=== PATIENT | female | born 1965 | race Caucasian/White ===

== ENCOUNTER 2020-11-06 17:46 | Outpatient (REF) | payer OTHER, SELFPAY ==
--- NOTE | 2020-11-06 09:00 | PAPFT_PTH ---
PATIENT: Krystyna Frazier LOC: [facility] U#:[id number] AGE/SX: 55/F ROOM: RE11/06/[address]: Holley Mayes : 1965 BED: DIS: 11/06/2020 SPEC #: [id number] RECD: 11/07/20 18:34 STATUS: YASMIN REQ #: [id number] JUDIE: 11/06/20 09:[address]: Holley Mayes DEPT: [facility] Cytology RECD BY: Tami East Tissues: 1 - CX/ENDOCX FOR PAP SMEARS Procedures: PAP THIN PREP/UVM Screening HPV DNA PROBE Comments: [id number]
== END 2020-11-06 17:47 | disposition home or self-care (01) ==
LOC: NCHCN 17:46
PROVIDERS: PCP Family Medicine; Visit Provider Family Medicine
DX: Z12.4 Encounter for screening for malignant neoplasm of cervix (principal); Z11.51 Encounter for screening for human papillomavirus (HPV); Z00.00 Encounter for general adult medical examination without abnormal findings; Z01.419 Encounter for gynecological examination (general) (routine) without abnormal findings
CPT/HCPCS: 88142; 87624

== ENCOUNTER → 2021-08-07 01:27 | Outpatient (CLI) | payer OTHER, SELFPAY ==
--- NOTE | 2021-08-07 08:30 | DI.MRI_ITS ---
Exam(s) MR BRAIN WO/W EXAM: MR BRAIN WO/W CLINICAL HISTORY: POST TRAUMATIC HEADACHE, G44.309 TECHNIQUE: Multiplanar multisequence MRI of the brain was performed. CONTRAST MATERIAL: IV Contrast: 13 ML of Dotarem contrast administered. COMPARISON: No exams were available for comparison FINDINGS: VENTRICLES AND EXTRA AXIAL SPACES: Normal in size and morphology for the patient's age. HEMORRHAGE: None. CEREBRAL PARENCHYMA: No focus of restricted diffusion to suggest acute infarct. No space-occupying le jacqueline identified. There are areas of hyperintense signal seen on the FLAIR and T2 weighted images in t he left parietal lobe adjacent to the lateral ventricle and in the left occipital lobe. These areas show no enhancement. MIDLINE SHIFT: None. BRAINSTEM/CEREBELLUM: Normal. CALVARIUM: Normal. ENHANCEMENT: No suspicious enhancement identified. VISUALIZED PARANASAL SINUSES/MASTOIDS: Clear. EKLUTNA OF MORALES: Normal flow void. PITUITARY GLAND: Unremarkable. OTHER FINDINGS: IMPRESSION: 1. No intracranial hemorrhage. No acute infarct. 2. Foci of hyperintense signal seen on the FLAIR and T2 weighted images in the left parietal lobe and the left occipital lobe as described. Differential considerations include white matter injury/traum a, migraine related deep white matter disease, demyelinating disease, inflammatory/infectious process , or vasculitis. DATA REPOSITORY:
[2021-08-07] MEDS: Normal Saline Flush 10 ML SYR IVP (08:39)
[2021-08-07] MEDS: Gadoterate meglumine 20 ML VIAL 13 ML IVP (08:40)
== END ==
PROVIDERS: PCP Family Medicine; Visit Provider Family Medicine
DX: G44.309 Post-traumatic headache, unspecified, not intractable (principal); R94.02 Abnormal brain scan
CPT/HCPCS: 70553

== ENCOUNTER 2023-03-18 18:31 | Outpatient (REF) | payer OTHER, SELFPAY ==
[2023-03-18 14:19] LABS: Abs Immature Grans 0.01 10^3/uL (0.0-0.06); Absolute Basophil Count 0.06 10^3/uL (0.0-0.2); Absolute Lymphocyte Count 1.78 10^3/uL (1.2-3.4); Absolute Monocyte Count 0.39 10^3/uL (0.1-0.8); Absolute Neutrophil Count 3.16 10^3/uL (1.2-6.7); Basophils % 1.1; Eosinophils % 3.6; HCT 38.7 % (36.0-46.0); HGB 13.1 g/dL (11.2-15.7); Immature Grans % 0.2; Lymphocytes % 31.8; MCH 31.6 pg (27.0-33.0); MCHC 33.9 % (32.0-36.0); MCV 94 fL (80-95); Neutrophils % 56.3; Platelet Count 237 10^3/uL (130-400); RBC 4.14 10^6/uL (3.93-5.22); RDW 12.8 % (11.7-14.6); RDW-SD 44.1 fL
[2023-03-18 14:34] LABS: ALT 17 U/L (14-59); AST 14 U/L (15-37); Albumin 3.9 g/dL (3.4-5.0); Alkaline Phosphatase 63 U/L (46-116); BUN 19 mg/dL (7-18); Bilirubin, Total 0.4 mg/dL (0.2-1.0); CREATININE 0.7 mg/dL (0.55-1.02); Calcium 9.2 mg/dL (8.5-10.1); Calculated LDL 147 mg/dL (<100); Chloride 103 mmol/L (98-107); Cholesterol 222 mg/dL (<200); Estimated GFR 102.07 (mL/min/1.73m2); Glucose 94 mg/dL (74-106); HDL Cholesterol 60 mg/dL (40-60); Sodium 141 mmol/L (136-145); Total Protein 7.3 g/dL (6.4-8.2); Triglyceride 75 mg/dL (<150)
[2023-03-18 14:54] LABS: Vitamin D 25 Total 26.7 ng/mL (30-100)
== END 2023-03-18 18:32 | disposition home or self-care (01) ==
LOC: NCHCN 18:31
PROVIDERS: PCP Family Medicine; Visit Provider Family Medicine
DX: R56.9 Unspecified convulsions (principal); E55.9 Vitamin D deficiency, unspecified; R79.89 Other specified abnormal findings of blood chemistry; I10 Essential (primary) hypertension
CPT/HCPCS: 80053; 80061; 82306; 85025

== ENCOUNTER 2024-04-26 16:34 | Outpatient (REF) | payer OTHER, SELFPAY ==
--- OUTSIDE RECORDS SUMMARY | 2024-04-26 16:37 | XMS_ITS | Data Portability ---
Author Organization [place] - [facility] [place] [address] Assessment No assessment recorded. Plan of Treatment Reminders Order Date Submit Date Provider Last Modified By Organization Details Last Modified Time Details Appointments Nurse Visit 30 2023 03:30P M Not available Not available Not available Lab lipids, total, serum - 1Y 2023 024 [facility] (Registration ), [address] [place] [address] [place], [address], 04/26/2024 15:35:22 Referral physical therapist referral 2023 024 [email or web address] [facility], [address], [address], [place], [address], 10/19/2023 08:56:07 orthopedi c surgeon referral 2023 024 [facility], [address], [place], [address], 02/09/2024 15:41:59 orthopedi c surgeon referral 2023 024 [email or web address] [facility], [address], [place], [address], 03/30/2024 09:28:59 Procedures None recorded. Surgeries None recorded. Imaging US, duplex, carotid artery 2023 024 [facility], [address], [place], [address], 04/09/2024 16:26:06 Medication Orders methocarb patrica 500 mg tablet 2023 024 [email or web address] #[id number], [address], [place], [address], 01/09/2024 16:16:22 Patient TargetsNo targets recorded. Patient InstructionsNo instructions recorded. Reason for Referral Physical Therapist Referral for Left side sciatica Referring Physician: Holley Mayes [facility], Encounter Date: 09/26/2023 Physical Therapist Referral for Left side sciatica Referring Physician: Holley Mayes [facility], Encounter Date: 10/19/2023 Orthopedic Surgeon Referral for Pain of left knee joint Referring Physician: Holley Mayes [facility], Encounter Date: 01/09/2024 Orthopedic Surgeon Referral for Pain of left hip joint Referring Physician: Holley Mayes [facility], Encounter Date: 03/30/2024 Results Created Date Observation Date Name Description Value Unit Range Abnormal Flag Note LastModifiedBy Organization Detail LastModifiedTime 11/25/1911/25/2023 MAMMO , scree lorie, bilat eral No observ ation record ed. [email or web address] [facility] [address], [place], [address], 11/28/2023 13:16:09 04/09/20 24 04/09/2024 US, duple x, carot id arter y No observ ation record ed. [email or web address] [facility] [address], [place], [address], 04/13/2024 08:05:57 Result Notes None recorded. Problems Name Problem SNOMED Code Status Onset Date Resolution Date Notes Provider Name and Address Organization Details Recorded Time Seizure 33686254 Active 201903/18/20 23 - Comments only - Holley Mayes MD - Stable, no recent seizures . Problem Code: R56.9; Problem Code Type: ICD-10; Not Available [facility] 3 05:14:41 Edema 908019521 Active 201911/08/19 21 - Comments only - Holley Mayes MD - Patient currentl y takes 12.5 mg of hydrochl orothiaz marcus daily this controls her edema she has no none noted today. Her blood pressure is also very well controll ed with this. She does not have a history for hyperten jacqueline. Problem Code: R60.9; Problem Code Type: ICD-10; Not Available [facility] 3 05:14:41 Screenin g for malignan t neoplasm of colon Active 2019 Problem Code: Z12.11; Problem Code Type: ICD-10; Not Available [facility] 3 05:14:42 Screenin g mammogra phy Active 201911/08/19 21 - Comments only - Holley Mayes MD - Patient is now 12 months without a menstrua l cycle she is hot flashes. Recommen d that she takes in adequate amounts of calcium of recent 1000 mg a day and 2000 internat ional units of vitamin D to help maintain her bones. She does do weightbe aring exercise . Problem Code: Z12.31; Problem Code Type: ICD-10; Not Available [facility] 3 05:14:42 Menopaus e present 840793164 Active 201910/01/19 20 - Comments only - Holley Mayes MD - That it is not unusual for women to be in their mid to late her 50s. Problem Code: Z78.0; Problem Code Type: ICD-10; Not Available [facility] 3 05:14:42 Adult health examinat ion Active 202003/18/20 23 - Comments only - Holley Mayes MD - Krystyna Frazier is a healthy active 57 year old female her for a well exam. She is due for a colonsco py and would like that done in [facility] on. We will make that referral . She comes in fasting and would like her routine blood work done as well. I will send her a letter with the results. She sees her dentist as recommen ded and needs an eye doctor. Hers retired. Problem Code: Z00.00; Problem Code Type: ICD-10; Not Available [facility] 3 05:14:42 [facility] hyperten jacqueline 20759298 Active 202103/18/20 23 - Comments only - Holley Mayes MD - [facility] ed no changes made today. Problem Code: I10; Problem Code Type: ICD-10; Not Available [facility] 3 05:14:42 Allergic rhinitis 11748582 Active 2021 Problem Code: J30.9; Problem Code Type: ICD-10; Not Available [facility] 3 05:14:42 Vitamin D deficien cy 68265100 Active 2022 Problem Code: E55.9; Problem Code Type: ICD-10; Not Available [facility] 3 05:14:42 Posttrau matic headache 43211530 Completed 202001/11/2022 Problem Code: G44.309; Problem Code Type: ICD-10; Not Available [facility] 3 05:15:02 Counseli ng Completed 201911/07/2020 Problem Code: Z71.89; Problem Code Type: ICD-10; Not Available [facility] 3 05:15:11 Left side sciatica 22008615183 9104 Active [address], [facility] [address] , [facility] 4 15:30:29 Left side sciatica 50852106998 9104 Active [address], [facility] [address] , [facility] 4 15:37:57 Pain of left knee joint 10445319386 4107 Active [address], [facility] [address] , [facility] 4 16:26:25 Carotid bruit 602213270 Active [address], [facility] [address] , [facility] 4 08:26:37 Pain of left hip joint 26773335296 9100 Active 2023 HOLLEY MAYES MD [address], [place], [address] , [facility] 4 08:27:31 Problem Notes None recorded. Procedures Surgical History Date Name Laterality Status Provider Name and Address Organization Details Recorded Time 4 Most Recent [facility]/29/2024 15:06:10 1 Date of Last Pap Smear [facility] 03/29/2024 15:04:50 Imaging Results Imaging Date Name Status LastModified by Organiz ation Details LastModified Time 11/25/2023 MAMMO, screening, bilateral completed [email or web address] [facility] [address], [place], [address], 11/28/2023 13:16:09 04/09/2024 US, duplex, carotid artery completed [email or web address] [facility] [address], [place], [address], 04/13/2024 08:05:57 Procedure Notes None recorded. Medical Equipment None Reported. Allergies Allergen ID Allergen Name Allergen Category Reaction Reaction Severity Criticality Documentation Date Start Date Code Code System Note Provider Name and Address Organization Details Recorded Time 46540 Medicinal product containin g penicilli n and acting as antibacte rial agent (product) medicatio n rash Not available Not available 09/26/2023 38466 05 SNOMED ADWOA STEINBERG, [facility] 15:22:48 Medications Name Sig Start Date Stop Date Status Note LastModified by Organization Details LastModified Time methocarbam ol 500 mg tablet TAKE 2 TABLETS 3 TIMES A DAY BY ORAL ROUTE NEEDED FOR 10 DAYS. 01/08 completed Not Available Not Available Not Available lamotrigine 150 mg tablet TAKE 1 TABLET BY MOUTH TWICE A DAY active Not Available Not Available No t Available fluconazole 150 mg tablet TAKE 1 TABLET BY MOUTH DAILY FOR 1 DAY, REPEAT IN 3 DAYS NEEDED 03/30 completed Not Available Not Available Not Available hydrochloro thiazide 25 mg tablet TAKE 0.5 TABLET BY MOUTH ONCE A DAY DIRECTED active Not Available Not Available No t Available nitrofurant oin monohydrate /macrocryst als 100 mg capsule TAKE 1 CAPSULE BY MOUTH TWICE A DAY FOR 5 DAYS 03/30 completed Not Available Not Available Not Available Vitals Date Recorded Body height Body mass index (BMI) Body weight Body temperature Respiratory rate Heart rate Oxygen saturation Oxygen saturation in Arterial blood by Pulse oximetry Systolic blood pressure Diastolic blood pressure Provider Name and Address Organization Details Last Updated DateTime 4 167.64 cm 24.2 kg/m2 62412.8 6 g 97 [degF] 20 /min 71 /min 96 % 96 % 130 mm[Hg] 62 mm[Hg] VIJAY HAND MA [facility] 4 15:24:51 Date Recorded Body height Body mass index (BMI) Body weight Body temperature Oxygen saturation Oxygen saturation in Arterial blood by Pulse oximetry Heart rate Respiratory rate Systolic blood pressure Diastolic blood pressure Provider Name and Address Organization Details Last Updated DateTime 4 167.64 cm 24.5 kg/m2 07597.2 5 g 97.4 [degF] 97 % 97 % 76 /min 16 /min 122 mm[Hg] 68 mm[Hg] Preethi Mitchell RN [facility] 4 16:15:34 Date Recorded Body height Body temperature Respiratory rate Body mass index (BMI) Body weight Oxygen saturation Oxygen saturation in Arterial blood by Pulse oximetry Heart rate Systolic blood pressure Diastolic blood pressure Provider Name and Address Organization Details Last Updated DateTime 4 167.64 cm 97.8 [degF] 16 /min 24.7 kg/m2 16887.6 3 g 98 % 98 % 65 /min 136 mm[Hg] 64 mm[Hg] VIJAY HAND MA [facility] 4 07:59:19 Date Recorded Body height Systolic blood pressure Diastolic blood pressure Provider Name and Address Organization Details Last Updated DateTime 04/26/2024 167.64 cm 120 mm[Hg] 70 mm[Hg] ROSETTE DOCKERY CMA [facility] 04/26/2024 15:20:36 Social History Question Answer Notes LastModified by Organizat ion Details LastModified Time Tobacco Smoking Status Never Smoker ADWOA STEINBERG, [facility] 03/30/2024 07:57:16 Do You Have An Advance Directive? No Given At Todays Visit. [email or web address] Information not available 03/30/2024 Would You Say That, In General, Your Health Is Very Good Information not available 03/30/2024 Women Aged 18-50 - Would You Like To Become In The Next Year? (Female Patients Only) No Information not available 03/30/2024 How Often Does Anyone, Including Family, Physically Hurt You? Never Information not available 03/30/2024 How Often Does Anyone, Including Family, Insult Or Talk Down To You? Never Information no t available 03/30/2024 How Often Does Anyone, Including Family, Threaten You With Harm? Never Information not available 03/30/2024 How Often Does Anyone, Including Family, Scream Or Curse At You? Never Information not available 03/30/2024 Within The Past 12 Months, You Worried That Your Food Would Run Out Before You Got Money To Buy More. Never True Information n ot available 03/30/2024 Within The Past 12 Months, The Food You Bought Just Didn't Last And You Didn't Have Money To Get More. Never True Information n ot available 03/30/2024 How Hard Is It For You To Pay For The Very Basics Like Food, Housing, Medical Care, And Heating? Would You Say It Is: Not Hard At All Information not available 03/30/2024 In The Past 12 Months, Has Lack Of Reliable Transportation Kept You From Medical Appointments, Meetings, Work Or From Getting Things Needed For Daily Living? No Information not available 03/30/2024 What Is Your Housing Situation Today? I Have Housing. Information not available 03/30/2024 How Often In The Past Year Have You Used Marijuana (including Smoking, Vaping, Dabbing, Or Edibles)? Never Information not available 03/30/2024 How Often In The Past Year Have You Used Prescription Medications That Were Not Prescribed To You? Never Information n ot available 03/30/2024 How Often In The Past Year Have You Taken Your Own Prescription Medication More Than The Way It Was Prescribed Or For Different Reasons Than Its Intended Purpose? Never Information no t available 03/30/2024 How Often In The Past Year Have You Used Other Drugs (for Example, Heroin, Cocaine, Meth, Salvia, Inhalants)? Never Information not available 03/30/2024 Have You Ever Used IV Drugs? No Information not available 03/30/2024 Date Of Most Recent SBINS 03/30/2024 Information not available 03/30/2024 What Was The Date Of Your Most Recent Tobacco Screening? 03/30/2024 Information not available 03/30/2024 Has Tobacco Cessation Counseling Been Provided? Yes Information not available 03/30/2024 On What Date Was Tobacco Cessation Counseling Provided? 03/30/2024 Information not available 03/30/2024 Do You Or Have You Ever Used Any Other Forms Of Tobacco Or Nicotine? No Information not available 03/30/2024 Sex: Female Functional Status None recorded. Mental Status None recorded. Family History Nothing Reported Notes:*Problem: Mother Scler aderma Father healthy 2 brothers healthy Medical History No medical history recorded. Gynecological History Statement/Question Response Date of Last Pap Smear 11/06/2020 Most Recent Mammogram 11/25/2023 Obstetrics History GPAL:G 0 P 0 0 0 0 Immunizations Vaccine Type Date Status Provider Name and Address Organization Details Recorded Time Tdap 10/01/2019 completed Not Available [facility] 06:09:25 Tdap 03/10/2009 completed Not Available [facility] 06:09:25 Td(adult) unspecified formulation 12/31/1996 completed Not Available [facility] 07/01/2023 06:09:25 Hep B, unspecified formulation 12/31/2000 completed Not Available [facility] 07/01/2023 06:09:25 influenza, unspecified formulation 07/05/2014 completed Not Available [facility] 07/01/2023 06:09:25 Past Encounters Encounter ID Performer Location Encounter Start Date Encounter Closed Date Diagnosis/Indication Diagnosis SNOMED-CT Code Diagnosis ICD10 Code [id number] HOLLEY MAYES MD [address] [address] 09/26/2023 15:08:36 09/26/2023 15:36:02 Left side sciatica 1639016629 79755 M54.32 [id number] HOLLEY MAYES MD [address] [address] 01/09/2024 15:56:30 01/19/2024 11:33:26 Pain of left knee joint 1953910278 81054 M25.891 [id number] HOLLEY MAYES MD [address] [address] 03/30/2024 07:44:50 03/30/2024 09:28:58 Adult health examination 804582315 Z00.00 Essential hypertension 39064192 I10 Carotid bruit 067414245 R09.89 Pain of le ft hip joint 5689398235 55897 M25.335 [id number] ROSETTE DOCKERY CMA [address] [address] 04/26/2024 15:12:02 04/26/2024 15:22:43 Carotid bruit 079613419 R09.89 Health Concerns Section Related Observation LastModified by Organization Detai ls LastModified Time None Recorded Concern Status LastModified by Organization Details LastModified Time None Recorded Advance Directives Directive N: Given at todays visit. Payers Encounter Date Sequence Insurance Name Policy Number Policy Givens Covered Member ID Givens Member ID Guarantor Name 09/26/2023 1 [facility] [id number] Krystyna Resendez Freddie [id number] Krystyna Resendez Freddie 01/09/2024 1 [employer] [id number] Krystyna Resendez Freddie [id number] Krystyna Resendez Freddie 03/30/2024 1 [employer] [id number] Krystyna Resendez Freddie [id number] Krystyna Resendez Freddie 04/26/2024 1 [employer] [id number] Krystyna Resendez Freddie [id number] Krystyna Resendez Freddie Notes Date Note Type Note Provider Name and Address Organization Details Recorded Time 09/26/2023 text/html HPI Notes: Ana adan is a healthy active 58-year-old female who comes in today because 2 weeks ago she was shoveling snow she bent over and got a sudden pain on the left side of her buttock and into her left groin and down her leg. She tried ibuprofen that helped a little but it does not seem to be going away. She states that the it was swollen at first the swelling is not completely gone now. She is not having any difficulty urinating or defecating. MD [address], [place], [address], [facility]. 09/26/2023 15:38:13 01/09/2024 text/html HPI Notes: Ana adan is a 58-year-old female comes in today because she has developed left knee pain. She states that she Was doing physical therapy for her back and that is gotten much better but all of a sudden her left knee is very painful it is hard to straighten out there is an area of the bone right along the lateral aspect of the knee is incredibly tender just to touch. She states going up and down stairs is difficult especially down and walking downhill is also quite difficult it has not swollen and she is icing liberally and using Tylenol and ibuprofen it does not seem to be getting better spent several weeks. She did not recall any injury. MD [address], [place], [address], [facility]. 01/09/2024 16:42:24 03/30/2024 text/html HPI Notes: Ana adan is a healthy active 58-year-old female comes in today for general well exam. She is up-to-date on her mammograms and Pap smears. She is due for colonoscopy and would prefer to do that at [facility]. Blood pressure is well-controlled and she is having no side effects from the medication hydrochlorothiazid e. She reports she is eating a healthy diet she is trying to be more physically active but her left hip is becoming increasingly more painful and interfering with her ability and would like to see someone about it. She has done a significant amount of physical therapy this year and it has not resolved the issue. She reports she is up to date on her dental care. She has not seen an eye doctor for several years she needs to find a new one. She has not really noticed any significant change in her vision. HOLLEY MAYES MD [address], [place], [address], [facility]. 03/30/2024 09:11:29 OBGyn Episode No OBEpisode recorded.
--- OUTSIDE RECORDS SUMMARY | 2024-04-26 16:37 | XMS_ITS | Continuity of Care Document ---
Author Organization [facility] Address [address] [place] [address] Assessment No assessment recorded. Plan of Treatment Reminders Order Date Submit Date Provider Last Modified By Organization Details Last Modified Time Details Appointments Nurse Visit 30 2023 03:30P M Not available Not available Not available Lab None recorded. Referral orthopedi c surgeon referral 2023 024 [email or web address] [facility], [address], [place], [address], 03/30/2024 09:28:59 Procedures None recorded. Surgeries None recorded. Imaging US, duplex, carotid artery 2023 024 [facility], [address], [place], [address], 04/09/2024 16:26:06 Medication Orders None recorded. Patient TargetsNo targets recorded. Patient InstructionsNo instructions recorded. Reason for Referral Physical Therapist Referral for Left side sciatica Referring Physician: [facility], Encounter Date: 09/26/2023 Physical Therapist Referral for Left side sciatica Referring Physician: [facility], Encounter Date: 10/19/2023 Orthopedic Surgeon Referral for Pain of left knee joint Referring Physician: [facility], Encounter Date: 01/09/2024 Orthopedic Surgeon Referral for Pain of left hip joint Referring Physician: [facility], Encounter Date: 03/30/2024 Results Created Date Observation Date Name Description Value Unit Range Abnormal Flag Note LastModifiedBy Organization Detail LastModifiedTime 04/09/20 24 04/09/2024 US, mohamud x, carot id arter y No observ ation record ed. lbisson [facility] [address], [place], [address], 04/13/2024 08:05:57 Result Notes None recorded. Problems Name Problem SNOMED Code Status Onset Date Resolution Date Notes Provider Name and Address Organization Details Recorded Time Seizure 08320759 Active 201903/18/20 23 - Comments only - Karis Mayes MD - Stable, no recent seizures . Problem Code: R56.9; Problem Code Type: ICD-10; Not Available [facility] 3 05:14:41 Edema 246920528 Active 201911/08/19 21 - Comments only - Karis Mayes MD - Patient currentl y takes 12.5 mg of hydrochl orothiaz marcus daily this controls her edema she has no none noted today. Her blood pressure is also very well controll ed with this. She does not have a history for hyperten jacqueline. Problem Code: R60.9; Problem Code Type: ICD-10; Not Available [facility] 3 05:14:41 Screenin g for malignan t neoplasm of colon Active 2019 Problem Code: Z12.11; Problem Code Type: ICD-10; Not Available [facility] 3 05:14:42 Screenin g mammogra phy Active 201911/08/19 21 - Comments only - Karis Mayes MD - Patient is now 12 months without a menstrua l cycle she is hot flashes. Recommen d that she takes in adequate amounts of calcium of recent 1000 mg a day and 2000 internat ional units of vitamin D to help maintain her bones. She does do weightbe aring exercise . Problem Code: Z12.31; Problem Code Type: ICD-10; Not Available [facility] 3 05:14:42 Menopaus e present 899462373 Active 201910/01/19 20 - Comments only - Karis Mayes MD - That it is not unusual for women to be in their mid to late her 50s. Problem Code: Z78.0; Problem Code Type: ICD-10; Not Available [facility] 3 05:14:42 Adult health examinat tucker Active 202003/18/20 23 - Comments only - Karis Mayes MD - Krystyna Frazier is a healthy active 57 year old female her for a well exam. She is due for a colonsco py and would like that done in [facility] on. We will make that referral . She comes in fasting and would like her routine blood work done as well. I will send her a letter with the results. She sees her dentist as recommen ded and needs an eye doctor. Hers retired. Problem Code: Z00.00; Problem Code Type: ICD-10; Not Available [facility] 3 05:14:42 [facility]entia l hyperten jacqueline 17033957 Active 202103/18/20 23 - Comments only - Karis Mayes MD - [facility] ed no changes made today. Problem Code: I10; Problem Code Type: ICD-10; Not Available [facility] 3 05:14:42 Allergic rhinitis 60454242 Active 2021 Problem Code: J30.9; Problem Code Type: ICD-10; Not Available [facility] 3 05:14:42 Vitamin D deficien cy 44260165 Active 2022 Problem Code: E55.9; Problem Code Type: ICD-10; Not Available [facility] 3 05:14:42 Posttrau matic headache 78318278 Completed 202001/11/2022 Problem Code: G44.309; Problem Code Type: ICD-10; Not Available [facility] 3 05:15:02 Counseli ng Completed 201911/07/2020 Problem Code: Z71.89; Problem Code Type: ICD-10; Not Available [facility] 3 05:15:11 Left side sciatica 12692998998 9104 Active 2023 KARIS MAYSE MD [facility] [address], [place], [address] , [facility]. 4 15:30:29 Left side sciatica 75194102105 9104 Active 2023 KARIS MAYES MD [address], [facility] [address] , [facility] 4 15:37:57 Pain of left knee joint 61647000927 4107 Active [address], [facility] [address] , [facility] 4 16:26:25 Carotid bruit 199394842 Active [address], [facility] [id number] [place] [address] 4 08:26:37 Pain of left hip joint 07313442840 9100 Active [address], [facility] [address] , [facility] 4 08:27:31 Problem Notes None recorded. Procedures Surgical History Date Name Laterality Status Provider Name and Address Organization Details Recorded Time 4 Most Recent [facility] 03/29/2024 15:06:10 1 Date of Last Pap Smear [facility] 03/29/2024 15:04:50 Imaging Results None recorded. Procedure Notes None recorded. Medical Equipment None Reported. Allergies Allergen ID Allergen Name Allergen Category Reaction Reaction Severity Criticality Documentation Date Start Date Code Code System Note Provider Name and Address Organization Details Recorded Time 19596 Medicinal product containin g penicilli n and acting as antibacte rial agent (product) medicatio n rash Not available Not available 09/26/2023 70357 05 SNOMED [facility] 4 15:22:48 Medications Name Sig Start Date Stop [...] Available Vitals Date Recorded Body height Body temperature Respiratory rate Body mass index (BMI) Body weight Oxygen saturation Oxygen saturation in Arterial blood by Pulse oximetry Heart rate Systolic blood pressure Diastolic blood pressure Provider Name and Address Organization Details Last Updated DateTime 4 167.64 cm 97.8 [degF] 16 /min 24.7 kg/m2 11338.6 3 g 98 % 98 % 65 /min 136 mm[Hg] 64 mm[Hg] VIJAY HAND MA [facility] 07:59:19 Social History Question Answer Notes LastModified by Organizat ion Details LastModified Time Tobacco Smoking Status Never Smoker VIJAY HAND MA null, [facility] 03/30/2024 07:57:16 Do You Have An Advance Directive? No Given At Todays Visit. harvey Information not available 03/30/2024 Would You Say [...] Recorded Time Tdap 10/01/2019 completed Not Available [facility] 06:09:25 Tdap 03/10/2009 completed Not Available [facility] 06:09:25 Td(adult) unspecified formulation 12/31/1996 completed Not Available [facility] 07/01/2023 06:09:25 Hep B, unspecified formulation 12/31/2000 completed Not Available [facility] 07/01/2023 06:09:25 influenza, unspecified formulation 07/05/2014 completed Not Available [facility] 07/01/2023 06:09:25 Past Encounters Encounter ID Performer Location Encounter Start Date Encounter Closed Date Diagnosis/Indication Diagnosis SNOMED-CT Code Diagnosis ICD10 Code [id number] KARIS MAYES MD [address] [address] 03/30/2024 07:44:50 03/30/2024 09:28:58 Adult health examination 102813314 Z00.00 Essential hypertension 44632084 I10 Carotid bruit 742219968 R09.89 Pain of le ft hip joint 3744515230 81665 M25.552 Health Concerns Section Related Observation LastModified by Organization Detai ls LastModified Time None Recorded Concern Status LastModified by Organization Details LastModified Time None Recorded Payers Encounter Date Sequence Insurance Name Policy Number Policy Givens Covered Member ID Givens Member ID Guarantor Name 03/30/2024 1 [facility] [id number] Krystyna Frazier [id number] Krystyna Frazier Notes Date Note Type Note Provider Name and Address Organization Details Recorded Time 03/30/2024 text/html HPI Notes: Cryst loco is a healthy active 58-year-old female comes in today for general well exam. She is up-to-date on her mammograms and Pap smears. She is due for colonoscopy and would prefer to do that at [facility]. Blood pressure is well-controlled and she [...] noticed any significant change in her vision. KARIS MAYES MD [address], [place], [address], [facility]. 03/30/2024 09:11:29 OBGyn Episode No OBEpisode recorded.
[2024-04-26 22:13] LABS: Calculated LDL 134 mg/dL (<100); Cholesterol 206 mg/dL (<200); HDL Cholesterol 63 mg/dL (40-60); Triglyceride 47 mg/dL (<150)
== END 2024-04-26 16:35 | disposition home or self-care (01) ==
LOC: NCHCN 16:34
PROVIDERS: PCP Family Medicine; Visit Provider Family Medicine
DX: R09.89 Other specified symptoms and signs involving the circulatory and respiratory systems (principal)
CPT/HCPCS: 80061